=== PATIENT | female | born 1955 | race American Indian/Alaskan Native ===

== ENCOUNTER 2020-01-18 15:36 | Emergency (ER) | payer MEDICARE ==
[2020-01-18] MEDS ORDERED: MORPHINE 4 MG/1 ML INJ IV ONE (16:31)
[2020-01-18] MEDS ORDERED: hydrALAZINE 20 MG/1 ML INJ IV ONE (16:31)
--- NOTE | 2020-01-18 16:37 | Emergency Department Report ---
HPI - General Chief Complaint: Extremity Injury, Lower Time Seen by Provider: 01/18/20 16:15 - HPI HPI: This is a 64-year-old -[place] female presents to the emergency department with a complaint of right groin pain that appears to be acute on chr onic. The patient has seen previous physicians for this but does not have an answer for what is causing her pain. The patient says that she was told that maybe it was from her right hip but she had a negative x-ray done. She also had an MRI of her back as she was told that maybe it was some type of radiculopathy from the lumbar spine but says that she has not had the results and "they are not returning my phone calls." The patient is taking diclofenac for her symptoms without any relief. She denies any swelling of the groin, dysuria, vaginal bleeding or discharge, diarrhea or constipation, fever. She has a past medical history of hypertension and high cholesterol. She does present with very elevated blood pressure. She is on lisinopril 10 mg and has been compliant with this medication. ED Past Medical Hx - Past Medical History Previous Medical History?: Yes Hx Hypertension: Yes Additional medical history: high cholestrol - Surgical History Past Surgical History?: No - Social History Smoking Status: Never Smoker Substance Use Type: None ED Review of Systems ROS: Stated complaint: RT GROIN PAIN Other details as noted in HPI Comment: All other systems reviewed and negative Constitutional: denies: chills, fever Respiratory: denies: cough, shortness of breath Cardiovascular: denies: chest pain, palpitations Gastrointestinal: denies: abdominal pain, vomiting Genitourinary: other (right groin pain). denies: dysuria, discharge Musculoskeletal: denies: back pain, joint swelling Skin: denies: rash, lesions Neurological: denies: headache, numbness, paresthesias Physical Exam - Physical Exam Vital Signs: Vital Signs 01/18/20 15:45 Temperature 99.7 F H Pulse Rate 133 H Respiratory 18 Rate Blood Pressure 219/110 O2 Sat by Pulse 95 Oximetry Physical Exam: GENERAL: The patient is well-developed well-nourished. HENT: Normocephalic. Atraumatic. Patient has moist mucous membranes. EYES: Extraocular motions are intact. NECK: Supple. Trachea is midline. CHEST/LUNGS: Clear to auscultation. There is no respiratory distress noted. HEART/CARDIOVASCULAR: Regular. There is mild tachycardia. There is no murmur. ABDOMEN: Abdomen is soft, nontender. Patient has normal bowel sounds. There is no abdominal distention. SKIN: Skin is warm and dry. NEURO: The patient is awake, alert, and oriented. The patient is cooperative. The patient has no focal neurologic deficits. Normal speech. MUSCULOSKELETAL: There is no tenderness or deformity. Unable to reproduce right inguinal tenderness to palpation. No obvious deformity. There is no limitation range of motion. ED Course Vital Signs 01/18/20 15:45 Temperature 99.7 F H Pulse Rate 133 H Respiratory 18 Rate Blood Pressure 219/110 O2 Sat by Pulse 95 Oximetry - Reevaluation(s) Reevaluation #1: 01/18/20 19:52 Lab Results 01/18/20 01/18/20 Range/Units 16:37 16:37 WBC 4.7 (4.5-11.0) K/mm3 RBC 4.38 (3.65-5.03) M/mm3 Hgb 11.5 (10.1-14.3) gm/dl Hct 35.0 (30.3-42.9) % MCV 80 (79-97) fl MCH 26 L (28-32) pg MCHC 33 (30-34) % RDW 13.8 (13.2-15.2) % Plt Count 296 (140-440) K/mm3 Lymph % (Auto) 36.5 H (13.4-35.0) % Wilkinson % (Auto) 9.7 H (0.0-7.3) % Eos % (Auto) 4.2 (0.0-4.3) % Baso % (Auto) 0.5 (0.0-1.8) % Lymph # 1.7 (1.2-5.4) K/mm3 Wilkinson # 0.5 (0.0-0.8) K/mm3 Eos # 0.2 (0.0-0.4) K/mm3 Baso # 0.0 (0.0-0.1) K/mm3 Seg Neutrophils % 49.1 (40.0-70.0) % Seg Neutrophils # 2.3 (1.8-7.7) K/mm3 Sodium 138 (137-145) mmol/L Potassium 3.4 L (3.6-5.0) mmol/L Chloride 100.6 (98-107) mmol/L Carbon Dioxide 23 (22-30) mmol/L Anion Gap 18 mmol/L BUN 13 (7-17) mg/dL Creatinine 0.8 (0.6-1.2) mg/dL Estimated GFR > 60 ml/min BUN/Creatinine Ratio 16 % Glucose 114 H (65-100) mg/dL Calcium 9.8 (8.4-10.2) mg/dL Reevaluation #2: 01/18/20 19:53 The examination of the patient's groin was done with VALDEZ Fontenot at bedside. ED Medical Decision Making - Lab Data Result diagrams: 01/18/20 16:37 01/18/20 16:37 - Radiology Data Radiology results: report reviewed CT ABDOMEN AND PELVIS WITH CONTRAST INDICATION / CLINICAL INFORMATION: pelvic and right groin pain. TECHNIQUE: Axial CT images were obtained through the abdomen and pelvis after 100 cc Omnipaque 300 milligrams percent IV contrast. All CT scans at this location are performed using CT dose reduction for ALARA by means of automated exposure control. COMPARISON: None available. FINDINGS: LOWER CHEST: No significant abnormality. Moderate size hiatal hernia is present. LIVER: No significant abnormality. GALLBLADDER: No significant abnormality. BILE DUCTS: No significant abnormality. PANCREAS: No significant abnormality. SPLEEN: No significant abnormality. ADRENALS: No significant abnormality. RIGHT KIDNEY and URETER: No significant abnormality. LEFT KIDNEY and URETER: No significant abnormality. STOMACH and SMALL BOWEL: No significant abnormality. COLON: No significant abnormality. APPENDIX: No significant abnormality. PERITONEUM: No free fluid. No free air. No fluid collection. LYMPH NODES: No significant adenopathy. AORTA and ARTERIES: Calcified atherosclerotic plaques present.. IVC and VEINS: No significant abnormality. URINARY BLADDER: Distended urinary bladder REPRODUCTIVE ORGANS: No significant abnormality. ADDITIONAL FINDINGS: None. SKELETAL SYSTEM: No significant abnormality. IMPRESSION: 1. Urinary bladder distention - Medical Decision Making This patient presents to the emergency department with a complaint of some right groin pain that appears to be acute on chronic. On examination there is no rash, lesions, palpable hernia and the patient has full range of motion of her extremities. Labs have been unremarkable including CBC and metabolic panel. CT scan of the abdomen and pelvis with IV contrast was completed that showed bladder distention but otherwise no acute process. As I went to talk to the patient regarding the bladder distention she was on her way back from the restroom where she voided. However we were unable to get a urine sample. Patient denies any dysuria, incontinence, retention. Patient presented with very elevated blood pressure. Her blood pressure dropped with IV analgesia and a dose of IV antihypertensive medication. She was then given some IV fluid resuscitation. She does not appear to have any emergent medical condition or the need for admission at this time. She has good outpatient follow-up with both primary care and an orthopedist. The patient is currently asymptomatic regarding her groin pain but is mostly anxious about the pain returning. She will return to the emergency department with any worsening of her symptoms or with any acute distress. Critical Care Time: No Critical care attestation.: If time is entered above; I have spent that time in minutes in the direct care of this critically ill patient, excluding procedure time. ED Disposition Clinical Impression: Right groin pain Hypertension Qualifiers: Hypertension type: essential hypertension Qualified Code(s): I10 - Essential (primary) hypertension Disposition: TO HOME OR SELFCARE Is pt being admited?: No Condition: Stable Instructions: Hypertension (ED), Arthralgia (ED) Additional Instructions: Please follow-up with your primary care physician in the next few days. Please follow-up with your orthopedist and get the results of your MRI. Return to the emergency department with any worsening of your symptoms or with any acute distress. Referrals: AILEEN MEEKS MD [Primary Care Provider] - 2-3 Days Time of Disposition: 19:49
[2020-01-18] MEDS ORDERED: ONDANSETRON 4 MG/2 ML INJ IV ONE (17:06)
[2020-01-18 17:13] LABS: Basophils % (Auto) 0.5 % (0.0-1.8); Eosinophils # (Auto) 0.2 K/mm3 (0.0-0.4); Eosinophils % (Auto) 4.2 % (0.0-4.3); Hemoglobin 11.5 gm/dl (10.1-14.3); Lymphocytes # (Auto) 1.7 K/mm3 (1.2-5.4); Lymphocytes % (Auto) 36.5 % (13.4-35.0); Mean Corpuscular HGB Conc 33 % (30-34); Mean Corpuscular Volume 80 fl (79-97); Monocytes # (Auto) 0.5 K/mm3 (0.0-0.8); Monocytes % (Auto) 9.7 % (0.0-7.3); Platelet Count 296 K/mm3 (140-440); Red Blood Count 4.38 M/mm3 (3.65-5.03); Red Cell Distribution Width 13.8 % (13.2-15.2)
[2020-01-18 17:28] LABS: BUN/Creatinine Ratio 16; Blood Urea Nitrogen 13 mg/dL (7-17); Calcium 9.8 mg/dL (8.4-10.2); Hemolysis Index 5
[2020-01-18] MEDS ORDERED: SODIUM CHLORIDE 0.9% 1000 ML 1,000 ML IV ONE (18:10)
[2020-01-18] MEDS ORDERED: SODIUM CHLORIDE 0.9% 1000 ML 1,000 ML ONE (18:13)
--- NOTE | 2020-01-18 19:22 | Cat Scan Report ---
CT ABDOMEN AND PELVIS WITH CONTRAST INDICATION / CLINICAL INFORMATION: pelvic and right groin pain. TECHNIQUE: Axial CT images were obtained through the abdomen and pelvis after 100 cc Omnipaque 300 milligrams pe rcent IV contrast. All CT scans at this location are performed using CT dose reduction for ALARA by means of automated exposure control. COMPARISON: None available. FINDINGS: LOWER CHEST: No significant abnormality. Moderate size hiatal hernia is present. LIVER: No significant abnormality. GALLBLADDER: No significant abnormality. BILE DUCTS: No significant abnormality. PANCREAS: No significant abnormality. SPLEEN: No significant abnormality. ADRENALS: No significant abnormality. RIGHT KIDNEY and URETER: No significant abnormality. LEFT KIDNEY and URETER: No significant abnormality. STOMACH and SMALL BOWEL: No significant abnormality. COLON: No significant abnormality. APPENDIX: No significant abnormality. PERITONEUM: No free fluid. No free air. No fluid collection. LYMPH NODES: No significant adenopathy. AORTA and ARTERIES: Calcified atherosclerotic plaques present.. IVC and VEINS: No significant abnormality. URINARY BLADDER: Distended urinary bladder REPRODUCTIVE ORGANS: No significant abnormality. ADDITIONAL FINDINGS: None. SKELETAL SYSTEM: No significant abnormality. IMPRESSION: 1. Urinary bladder distention Signer Name: Nacho Espinosa MD Signed: 01/18/2020 7:18 PM Workstation Name: [id number]
[2020-01-18 20:53] LABS: Bilirubin,Urine NEG (Negative); Blood,Urine NEG (Negative); Color,Urine Colorless (Yellow); Protein,Urine <15 mg/dL mg/dL (Negative); RBC,Urine < 1.0 /HPF (0.0-6.0); Urobilinogen,Urine < 2.0 mg/dL (<2.0)
[2020-01-18 21:58] VITALS: BP 132/76
== END 2020-01-18 22:11 | disposition home or self-care (01) ==
LOC: ED 15:36
DX: R10.31 Right lower quadrant pain (principal); I10 Essential (primary) hypertension; Z91.013 Allergy to seafood
CPT/HCPCS: 36415; 74177; 80048; 81001; 85025; 96361; 96374; 96375; 99284; J0360; J2270; J2405; J7030; Q9967